=== PATIENT | male | born 1990 | race Native Hawaiian/Other Pacific Islander ===

== ENCOUNTER 2016-12-18 13:24 | Emergency (ER) | payer OTHER ==
[~2016-12-18] VITALS: Ht 172.7 cm; Wt 2.5 kg
[2016-12-18 14:00] VITALS: TEMP 98.2
[2016-12-18 16:35] LABS: PLATELET COUNT 218 K/uL (142-355)
[2016-12-18 16:40] LABS: POTASSIUM 3.9 mmol/L (3.6-5.2); SODIUM 133 mmol/L (136-145)
[2016-12-18 18:30] VITALS: BP 131/91
== END 2016-12-18 18:31 | disposition home or self-care (01) ==
LOC: ED 13:24
PROVIDERS: Family Medicine
DX: R11.11 Vomiting without nausea (principal); K21.9 Gastro-esophageal reflux disease without esophagitis
CPT/HCPCS: 36415; 80053; 80307; 81000; 82553; 84484; 85027; 86318; 93005; 99283; G0479

== ENCOUNTER 2019-04-27 08:07 | Emergency (ER) | payer OTHER ==
[~2019-04-27] VITALS: Ht 170.2 cm; Wt 83.9 kg
[2019-04-27 08:51] LABS: POTASSIUM 4.2 mmol/L (3.6-5.2)
[2019-04-27 08:57] LABS: PLATELET COUNT 250 K/uL (142-355)
[2019-04-27 09:23] VITALS: BP 118/67; TEMP 98
== END 2019-04-27 09:23 | disposition home or self-care (01) ==
LOC: ED 08:07
PROVIDERS: Emergency Medicine
DX: K29.70 Gastritis, unspecified, without bleeding (principal); R11.2 Nausea with vomiting, unspecified
CPT/HCPCS: 80053; 85027; 87502; 87651; 96360; 96365; 96375; 99284; J2405